=== PATIENT | male | born 1990 | race Caucasian/White ===

== ENCOUNTER → 2016-06-03 | Outpatient (CLI) | payer BC ==
--- NOTE | 2016-06-03 09:58 | REP ---
LEFT WRIST, FOUR VIEWS: HISTORY: Contusion. There is no acute fracture or dislocation. There is an old fracture of the pisiform. The joint spaces are normal in appearance. IMPRESSION: There is no acute fracture or dislocation. Signed by Man Garrett MD 06/03/2016 10:01 A
== END ==
LOC: M WUC 09:12
PROVIDERS: ATTEND Physician Assistant
DX: S60.212A Contusion of left wrist, initial encounter (principal); X58.XXXA Exposure to other specified factors, initial encounter; Y92.9 Unspecified place or not applicable

== ENCOUNTER → 2017-03-22 | Outpatient (REF) | payer BC ==
[2017-03-22 23:39] LABS: INFLUENZA A AMPLIFICATION POSITIVE (NEGATIVE); INFLUENZA B AMPLIFICATION NEGATIVE (NEGATIVE); RSV AMPLIFICATION NEGATIVE (NEGATIVE)
== END ==
LOC: M LAB REF 21:43
DX: J11.1 Influenza due to unidentified influenza virus with other respiratory manifestations (principal)
CPT/HCPCS: 87631

== ENCOUNTER 2019-04-04 11:49 | Emergency (ER) | payer BC ==
[~2019-04-04] VITALS: Ht 177.8 cm; Wt 98.3 kg
[2019-04-04] MEDS ORDERED: BACT800T5 PO (13:54)
[2019-04-04] MEDS ORDERED: BACTRIM 160MG/800MG DS TAB PO ONE (14:00)
[2019-04-04 14:18] VITALS: BP 130/77
== END 2019-04-04 14:18 | disposition home or self-care (01) ==
LOC: M ED 11:49
DX: L03.012 Cellulitis of left finger (principal); Z88.1 Allergy status to other antibiotic agents

== ENCOUNTER 2022-02-17 16:36 | Emergency (ER) | payer BC ==
[~2022-02-17] VITALS: Ht 177.8 cm; Wt 102.3 kg
[~2022-02-17 16:36] MED LIST: BACT800T5 PO; CEFD300C41 PO
[2022-02-17 16:51] VITALS: BP 203/102
[2022-02-17 17:11] LABS: ABG HCO3 26.2 MEQ/L (22.0-26.0); ABG O2 SATURATION 92.9 % (95.0-99.0); ABG PARTIAL PRESSURE O2 68.7 mmHg (75.0-100.0); ABG STANDARD HCO3 22.7 MEQ/L (22.0-26.0); ABG TOTAL CO2 27.9 MEQ/L (22.0-29.0); ABG pH (ARTERIAL) 7.272 UNITS (7.350-7.450)
[2022-02-17 17:25] LABS: BASO % 0.4 % (0.0-1.0); EOS # 0.3 10^3/uL (0.0-0.5); EOS % 2.7 % (0.0-3.0); HEMATOCRIT 45.8 % (42.0-52.0); HEMOGLOBIN 15.1 g/dl (13.5-17.5); LYMPH # 1.6 10^3/uL (1.5-5.0); MEAN CORPUSCULAR HEMOGLOBIN 29.7 pg (27.0-33.0); MEAN CORPUSCULAR VOLUME 90.2 fl (80.0-96.0); MONO % 10.2 % (2.0-8.0); NEUTROPHILS # 6.4 10^3/uL (1.5-8.5); NEUTROPHILS % 69.4 % (36.0-66.0); PLATELET COUNT, AUTOMATED 221 10^3/uL (150-450); RED BLOOD COUNT 5.08 10^6/uL (4.30-6.10); WHITE BLOOD COUNT 9.3 10^3/uL (4.0-10.0)
[2022-02-17 17:38] LABS: INR 0.96
[2022-02-17 17:39] LABS: PARTIAL THROMBOPLASTIN TIME 24.7 SECONDS (24.8-34.2)
[2022-02-17 17:51] LABS: CK-MB VALUE MASS 4.6 NG/ML (<3.6); ETHYL ALCOHOL (ETHANOL) 0.003 % (0.000-0.010); LIPASE 30 U/L (12-53)
[2022-02-17 17:52] LABS: AMYLASE 30 U/L (30-118)
[2022-02-17 17:53] LABS: ALBUMIN 4.4 G/DL (3.2-5.2); ALKALINE PHOSPHATASE 66 U/L (46-116); ALT/SGPT 124 U/L (7.0-40); AST/SGOT 204 U/L (<34); BILIRUBIN,DIRECT 0.2 MG/DL (<0.4); BILIRUBIN,TOTAL 0.5 MG/DL (0.3-1.2); BLOOD UREA NITROGEN 20 MG/DL (9-23); CALCIUM LEVEL 8.7 MG/DL (8.5-10.1); CARBON DIOXIDE LEVEL 30 MMOL/L (20-31); CHLORIDE LEVEL 99 MMOL/L (98-107); GLOMERULAR FILTRATION RATE > 60.0 (>60); GLUCOSE, FASTING 204 MG/DL (60-100); POTASSIUM SERUM 3.4 MMOL/L (3.5-5.1); SODIUM LEVEL 139 MMOL/L (136-145); TOTAL PROTEIN 7.5 G/DL (5.7-8.2)
[2022-02-17 17:54] LABS: RSV AMPLIFICATION NEGATIVE (NEGATIVE)
[2022-02-17 18:12] LABS: CPK CREATINE PHOSPHOKINASE 7181 U/L (46-171); MB/CK RELATIVE INDEX 0.06 (< OR =4)
== END 2022-02-17 18:03 | disposition left against medical advice (07) ==
LOC: M ED 16:36 → EDBD 16:36 → M ED 18:03
DX: S09.90XA Unspecified injury of head, initial encounter (principal); V49.40XA Driver injured in collision with unspecified motor vehicles in traffic accident, initial encounter; Z88.1 Allergy status to other antibiotic agents; Z53.9 Procedure and treatment not carried out, unspecified reason

== ENCOUNTER 2022-08-21 19:21 | Emergency (ER) | payer BC ==
[~2022-08-21] VITALS: Ht 177.8 cm; Wt 100.0 kg
[2022-08-21 19:21] VITALS: BP 126/79; TEMP 97.6; O2SAT 98
== END 2022-08-21 21:37 | disposition left against medical advice (07) ==
LOC: M ED 19:21
DX: Z53.21 Procedure and treatment not carried out due to patient leaving prior to being seen by health care provider (principal)

== ENCOUNTER → 2024-08-12 | Outpatient (CLI) | payer BC ==
[~2024-08-12] MED LIST changes: +CEFD1CAP9 PO; -CEFD300C41 PO
== END ==
LOC: M OUTALCOH 08:55
PROVIDERS: ATTEND Psychiatry & Neurology Psychiatry
DX: F11.20 Opioid dependence, uncomplicated (principal); F14.10 Cocaine abuse, uncomplicated; F10.10 Alcohol abuse, uncomplicated

== ENCOUNTER 2024-08-19 09:00 | Outpatient (RCR) | payer BC, SELFPAY ==
[2024-08-30] MEDS ORDERED: ERYT5OIN25 OD (09:13)
== END 2024-09-09 ==
LOC: M OUTALCOH 09:00
PROVIDERS: ATTEND Psychiatry & Neurology Psychiatry
DX: F11.20 Opioid dependence, uncomplicated (principal); F14.10 Cocaine abuse, uncomplicated; F10.10 Alcohol abuse, uncomplicated

== ENCOUNTER 2024-08-30 05:43 | Emergency (ER) | payer BC, SELFPAY ==
[~2024-08-30] VITALS: Ht 177.8 cm; Wt 98.4 kg
[2024-08-30] MEDS: PROPARACAINE 0.5% OPHTH SOL 15ML OD ONE ×2 (06:50→07:48)
[2024-08-30] MEDS: FLUORESCEIN OPHTH 1 MG STRIP OD ONE (06:50)
[2024-08-30] MEDS: ERYTHROMYCIN OPHTH OINT OD ONE (07:26)
[2024-08-30] MEDS: IBUPROFEN 600 MG TAB PO ONE (07:34)
[2024-08-30 07:54] VITALS: TEMP 98.9
[2024-08-30 09:00] VITALS: BP 128/78; O2SAT 99
[2024-08-30] MEDS ORDERED: ERYT5OIN25 OD (09:13)
== END 2024-08-30 09:15 | disposition home or self-care (01) ==
LOC: M ED 05:43
DX: S05.01XA Injury of conjunctiva and corneal abrasion without foreign body, right eye, initial encounter (principal); W22.8XXA Striking against or struck by other objects, initial encounter; Y92.017 Garden or yard in single-family (private) house as the place of occurrence of the external cause; Y93.89 Activity, other specified; Y99.9 Unspecified external cause status; Z88.1 Allergy status to other antibiotic agents

== ENCOUNTER 2024-10-07 08:00 | Outpatient (RCR) | payer OTHER ==
[~2024-10-07 08:00] MED LIST changes: +ERYT5OIN25 OD
== END 2024-10-10 ==
LOC: M OUTALCOH 08:00
PROVIDERS: ATTEND Psychiatry & Neurology Psychiatry
DX: F11.20 Opioid dependence, uncomplicated (principal); F14.10 Cocaine abuse, uncomplicated; F10.10 Alcohol abuse, uncomplicated

== ENCOUNTER 2024-10-13 08:14 | Outpatient (RCR) | payer OTHER | END 2024-11-09 | LOC: M OUTALCOH 08:14 | PROVIDERS: ATTEND Psychiatry & Neurology Psychiatry | DX: F11.20 Opioid dependence, uncomplicated (principal); F14.10 Cocaine abuse, uncomplicated; F10.10 Alcohol abuse, uncomplicated ==

== ENCOUNTER → 2024-12-10 | Outpatient (RCR) | payer OTHER | LOC: M OUTALCOH 11-23 10:59 | PROVIDERS: ATTEND Psychiatry & Neurology Psychiatry | DX: F11.20 Opioid dependence, uncomplicated (principal); F14.10 Cocaine abuse, uncomplicated; F10.10 Alcohol abuse, uncomplicated ==

== ENCOUNTER → 2024-12-23 | Outpatient (CLI) | payer OTHER ==
[~2024-12-23] MED LIST changes: +HYDR50TA70; +IBUP200T46 PO; +NAPR-837 PO; +ROPI0.5T33; +TRAZ-257
[2024-12-23 12:41] LABS: PLATELET COUNT, AUTOMATED 283 10^3/uL (150-450)
[2024-12-23 13:18] LABS: ALT/SGPT 35 U/L (7.0-40); AST/SGOT 30 U/L (<34); CALCIUM LEVEL 9.2 MG/DL (8.5-10.1); CARBON DIOXIDE LEVEL 32 MMOL/L (20-31); CHLORIDE LEVEL 103 MMOL/L (98-107); CREATININE FOR GFR 1.05 MG/DL (0.70-1.30); GLOMERULAR FILTRATION RATE > 90.0 (>60); POTASSIUM SERUM 4.3 MMOL/L (3.5-5.1); SODIUM LEVEL 143 MMOL/L (136-145)
[2024-12-23 13:43] LABS: HIV 1&2 SCREEN NEGATIVE (NEGATIVE)
[2024-12-23 13:51] LABS: HEPATITIS C VIRUS ABY INDEX < 0.02 INDEX (<0.8)
[2024-12-23 14:22] LABS: GC DNA AMPLIFICATION NEGATIVE (NEGATIVE)
== END ==
LOC: M WUC 08:45
PROVIDERS: ATTEND Family Medicine
DX: F11.20 Opioid dependence, uncomplicated (principal)

== ENCOUNTER 2024-12-27 13:21 | Emergency (ER) | payer OTHER ==
[~2024-12-27] VITALS: Ht 177.8 cm; Wt 96.3 kg
[~2024-12-27 13:21] MED LIST changes: -HYDR50TA70; -IBUP200T46 PO; -NAPR-837 PO; -ROPI0.5T33; -TRAZ-257
[2024-12-27] MEDS ORDERED: TRAZ-257 (13:29)
[2024-12-27] MEDS ORDERED: ROPI0.5T33 (13:29)
[2024-12-27] MEDS ORDERED: HYDR50TA70 (13:29)
[2024-12-27] MEDS ORDERED: IBUP200T46 PO (13:29)
[2024-12-27] MEDS ORDERED: NAPR-837 PO (14:46)
[2024-12-27 15:00] VITALS: BP 126/71; TEMP 98.1; O2SAT 98
== END 2024-12-27 15:06 | disposition home or self-care (01) ==
LOC: M ED 13:21
DX: S83.91XA Sprain of unspecified site of right knee, initial encounter (principal); V49.40XA Driver injured in collision with unspecified motor vehicles in traffic accident, initial encounter; Y92.410 Unspecified street and highway as the place of occurrence of the external cause; Y93.89 Activity, other specified; Y99.9 Unspecified external cause status; Z88.1 Allergy status to other antibiotic agents; Z79.899 Other long term (current) drug therapy; Z79.1 Long term (current) use of non-steroidal anti-inflammatories (NSAID)

== ENCOUNTER 2025-01-05 08:40 | Outpatient (RCR) | payer OTHER ==
[~2025-01-05 08:40] MED LIST changes: +HYDR50TA70; +IBUP200T46 PO; +NAPR-837 PO; +ROPI0.5T33; +TRAZ-257
== END 2025-01-09 ==
LOC: M OUTALCOH 08:40
PROVIDERS: ATTEND Psychiatry & Neurology Psychiatry
DX: F11.20 Opioid dependence, uncomplicated (principal); F14.10 Cocaine abuse, uncomplicated; F10.10 Alcohol abuse, uncomplicated

== ENCOUNTER 2025-02-04 14:57 | Outpatient (RCR) | payer OTHER | END 2025-02-09 | LOC: M OUTALCOH 14:57 | PROVIDERS: ATTEND Psychiatry & Neurology Psychiatry | DX: F11.20 Opioid dependence, uncomplicated (principal); F14.10 Cocaine abuse, uncomplicated; F10.10 Alcohol abuse, uncomplicated ==